=== PATIENT | female | born 1940 | race Caucasian/White ===

== ENCOUNTER → 2017-10-06 | Outpatient (CLI) | payer OTHER ==
[~2017-10-06] VITALS: Ht 157.5 cm; Wt 59.4 kg
[~2017-10-06] MED LIST: ADVIL,NUPRIN,M200 MG PO; ATENOLOL100 MG; ATENOLOL100 MG PO; CELEXA20 MG PO; CITALOPRAM HBR20 MG; CYCLOBENZAPR TAB 10M; FIBER GUMMIES1 EACH PO; FISH OIL CONC1 EACH PO; FLEXERIL10 MG PO; FOSAMAX70 MG PO; GLUCOSAMINE &1 EACH PO; HYDROCHLOROTHIA25 MG; HYDROCHLOROTHIA25 MG PO; IMITREX100 MG PO; KLOR-CON 1010 ME1 PO; LOVASTATIN10 MG PO; LOW DOSE ASPIRI81 M1 PO; LOW DOSE ASPIRI81 M2 PO; MAGNESIUM400 M1 PO; MAGNESIUM500 MG PO; METHADONE10 MG; METHADONE10 MG PO; MIRALAX255 GM PO; MULTIVITAMIN1 EAC2 PO; Magnesium PO; OMEPRAZOLE20 MG; OMEPRAZOLE40 M1 PO; PRAVASTATIN SOD80 MG; PRAVASTATIN SOD80 MG PO; SUMATRIPTAN SU100 MG
== END | disposition home or self-care (01) ==
LOC: AMB 07:30
PROC: 0D798ZZ Dilation of Duodenum, Via Natural or Artificial Opening Endoscopic (ICD-10-PCS; principal; 2017-10-06)
DX: K31.5 Obstruction of duodenum (principal); K25.9 Gastric ulcer, unspecified as acute or chronic, without hemorrhage or perforation; R11.2 Nausea with vomiting, unspecified; Z87.11 Personal history of peptic ulcer disease
CPT/HCPCS: 93005; J3010

== ENCOUNTER → 2017-11-06 | Outpatient (CLI) | payer OTHER ==
[~2017-11-06] VITALS: Ht 157.5 cm; Wt 59.4 kg
== END | disposition home or self-care (01) ==
LOC: AMB 07:55
PROC: 0D798ZZ Dilation of Duodenum, Via Natural or Artificial Opening Endoscopic (ICD-10-PCS; principal; 2017-11-06)
DX: K31.5 Obstruction of duodenum (principal); K25.9 Gastric ulcer, unspecified as acute or chronic, without hemorrhage or perforation; R11.2 Nausea with vomiting, unspecified; K31.1 Adult hypertrophic pyloric stenosis; I10 Essential (primary) hypertension; E78.6 Lipoprotein deficiency; Z80.0 Family history of malignant neoplasm of digestive organs; Z88.8 Allergy status to other drugs, medicaments and biological substances
CPT/HCPCS: J2405

== ENCOUNTER → 2017-12-11 | Outpatient (CLI) | payer OTHER ==
[~2017-12-11] VITALS: Ht 157.5 cm; Wt 59.4 kg
== END | disposition home or self-care (01) ==
LOC: AMB 11-24 07:30
PROC: 0D798ZZ Dilation of Duodenum, Via Natural or Artificial Opening Endoscopic (ICD-10-PCS; principal; 2017-12-11)
DX: K31.5 Obstruction of duodenum (principal); R63.0 Anorexia; R68.81 Early satiety; K21.9 Gastro-esophageal reflux disease without esophagitis; I10 Essential (primary) hypertension; E78.1 Pure hyperglyceridemia; R73.03 Prediabetes; Z80.0 Family history of malignant neoplasm of digestive organs; Z82.49 Family history of ischemic heart disease and other diseases of the circulatory system; Z83.3 Family history of diabetes mellitus; Z79.82 Long term (current) use of aspirin; Z88.8 Allergy status to other drugs, medicaments and biological substances